=== PATIENT | female | born 1960 | race Caucasian/White ===

== ENCOUNTER 2019-09-19 11:35 | Outpatient (CLI) | payer BC, SELFPAY ==
--- NOTE | ~2019-09-19 | XR_ITS ---
EXAMINATION: XR clavicle RT DATE: 09/19/2019 12:23 INDICATION: Right shoulder pain. TECHNIQUE: 2 views of right clavicle were obtained. COMPARISON: None. FINDINGS: Bone alignment is normal. No fracture. Glenohumeral joint is normal. There is mild acromioc lavicular joint osteoarthritis. IMPRESSION: 1. Mild right acromioclavicular joint osteoarthritis. Reviewed, dictated and finalized at location A. ROLS DESIGN ENGINEER
== END 2019-09-19 11:36 | disposition home or self-care (01) ==
PROVIDERS: PCP Family Medicine; Visit Provider Family Medicine
DX: M19.011 Primary osteoarthritis, right shoulder (principal)
CPT/HCPCS: 73000

== ENCOUNTER 2019-11-04 12:30 | Outpatient (RCR) | payer BC, SELFPAY ==
--- NOTE | 2019-10-12 15:08 | PTOPEVAL ---
PHYSICAL THERAPY EVALUATION AND PLAN OF CARE 10-12-2019 The PT evaluation was completed for the diagnosis of L sciatica and the plan of treatment is for 2x/week for 4 weeks. Thank you for referring Soniya to [facility] [place]. Please review, sign, date and return this plan of care MAMADOU. I agree with and certify that the following plan of care is medically necessary. Referring Physician Date Referring Provider: Dena Ag, *PT Outpatient Evaluation Start: 10/12/19 14:13 Document 10/12/19 14:05 CODY (Rec: 10/12/19 15:08 CODY [id number]) Therapy Assessment Status Assessment Status Assessment Status Evaluation Outpatient Past Medical History Neurological History Hx Neurological Disorders No Significant History Cardiovascular History Hx Hypertension Yes: meds Respiratory History Hx Other Respiratory Disorders Yes: chronic cough, smoker Gastrointestinal History Hx Gastrointestinal Disorders No Significant History Genitourinary History Hx Genitourinary Disorders No Significant History Musculoskeletal History Hx Arthritis Yes: R hip,sh pain Hx Back Pain Yes: prev L sciatica into L foot ~ 3 yr ago Hx Rheumatoid Arthritis Yes: to see automobile appraiser in October Hx Other Musculoskeletal Disorders Yes: R carpal tunnel surgery & pain in L needs surgery Endocrine History Hx Diabetes Yes: borderline- watching and lost 10# HEENT History Hx HEENT Disorders No Significant History Evaluation Information Problem Diagnosis L sciatica Onset July 27 2019 Subjective Information gradual increase in pain in Query Text:As Reported By Patient/ back and L side; no recent Family trauma or injury; did have round of predisone- helped some, but still hurts; Previous Treatments Previous Treatments For This Problem no PT for back Prior Level of Function Activity Level (Last 3 Months) 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
--- NOTE | 2019-11-02 13:27 | PCPTNOTE ---
Patient called & cancelled scheduled appointment this date due to pulling a muscle in her leg, & being unable to do anything today.
--- NOTE | 2019-11-04 13:08 | PTOPEVAL ---
PHYSICAL THERAPY DISCHARGE 11-04-2019 Ms. De La Rosa has received 6 PT sessions, from 10-12-19 to today, for the diagnosis of low back pain, L sciatica. Compared to the initial evaluation: pain rating at highest rating is worse; pain continues to be the same, with radicular into her L LE to foot, a few times a week; sitting eases her pain to 0/10; Oswestry self assessment functional score is 8% worse; reported standing tolerance is less; reports walking tolerance remains the same at a few minutes only; strength of her trunk and hips have increased slightly; standing posture is the same; She has been educated on correct posture and position of her back and a home exercise program. The electrical stim and heat give her short term pain relief. The goals were partially achieved for strength, and the other goals were not achieved. Thank you for referring Soniya De La Rosa to [facility]. Please review, sign, date and return this discharge MAMADOU. I agree with and certify that the following plan of care is medically necessary. 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 Pain Assessment Timing of Pain Assessment Timing of Pain Assessment Assessment Pain Scale Pain Scale Used Numeric (1 - 10) Self Report Pain Assessment Left Back Reported Pain Level 4 Radicular Pain Location L LE into arch of foot/numb- few times/wk, lateral and medial thigh Pain Frequency Chronic Other Pain Description pain L sacrum/buttock Lowest Pain Intensity 0 Greatest Pain Intensity 8 Pain Level Goal 0 Pain Aggravating Factors Exercise/Activity,Walking, Weight Bearing/Standing Other Pain Aggra
== END 2019-11-07 12:38 | disposition home or self-care (01) ==
LOC: ANHPT 12:30
PROVIDERS: PCP Family Medicine; Referring Provider Family Medicine; Visit Provider Family Medicine
DX: M54.32 Sciatica, left side (principal)
CPT/HCPCS: 97014; 97110; 97161; G0283

== ENCOUNTER 2019-11-22 14:53 | Outpatient (CLI) | payer BC, SELFPAY | END 2019-11-22 14:54 | disposition home or self-care (01) | PROVIDERS: PCP Family Medicine; Visit Provider Internal Medicine Rheumatology | DX: R76.8 Other specified abnormal immunological findings in serum (principal) | CPT/HCPCS: 36415; 86038 ==

== ENCOUNTER 2019-12-16 15:34 | Outpatient (CLI) | payer BC, SELFPAY ==
--- NOTE | ~2019-12-16 | MR_ITS ---
EXAMINATION: MR lumbar spine wo [facility] EXAM DATE: 12/16/2019 16:37 INDICATION: Left-sided sciatica. Difficulty walking. TECHNIQUE: Multi-sequential, multiplanar MR images of the lumbar spine were obtained without contrast . Sagittal T1, T2, T2 fat saturation images. Axial T2 weighted images. There is no prior study for comparison. FINDINGS: There is 4 mm anterolisthesis L4 on L5. The vertebral bodies are otherwise aligned. Moderat e loss of the disc heights L2-5, mild to moderate at L1-2 and L5-S1. Moderate loss of the disc height s at T10-11 and T11-12. The conus medullaris terminates at the L1/2 level and has normal signal inten sity and morphology. There are no suspicious marrow signal abnormalities. Paraspinal soft tissue is unremarkable. Level by level evaluation: T12-L1: Disc does not extend beyond the endplate margin. Facet arthropathy: Mild. Neural foraminal stenosis: No stenosis. Central canal stenosis: No stenosis. L1-L2: There is a mild to moderate diffuse disc bulge. Facet arthropathy: Mild. Neural foraminal stenosis: Mild bilateral. Central canal stenosis: Mild. L2-L3: There is a moderate diffuse disc bulge. Facet arthropathy: Mild to moderate. Neural foraminal stenosis: Moderate left, mild to moderate right. Central canal stenosis: Mild to moderate. L3-L4: There is a moderate diffuse disc bulge. Facet arthropathy: Moderate . Ligamentum flavum enlargement. Neural foraminal stenosis: Mild to moderate bilateral. Central canal stenosis: Moderate, nerve root crowding. L4-L5: There is a moderate to large diffuse disc bulge asymmetric to the left. Facet arthropathy: Moderate to severe . Ligamentum flavum enlargement. Neural foraminal stenosis: Moderate left, mild to moderate right. Central canal stenosis: Moderate to severe. L5-S1: There is a mild diffuse disc bulge. Facet arthropathy: Moderate bilateral. Neural foraminal stenosis: Mild to moderate right. Central canal stenosis: Mild. IMPRESSION: 1. Central canal most stenotic at L3-4 and L4-5. 2. Grade 1 anterolisthesis L4 on L5. Reviewed, dictated and finalized at location A.
== END 2019-12-16 15:35 | disposition home or self-care (01) ==
PROVIDERS: PCP Family Medicine; Visit Provider Family Medicine
DX: M54.32 Sciatica, left side (principal); M48.061 Spinal stenosis, lumbar region without neurogenic claudication; M43.16 Spondylolisthesis, lumbar region
CPT/HCPCS: 72148

== ENCOUNTER 2020-04-12 15:56 | Outpatient (CLI) | payer BC, SELFPAY ==
--- NOTE | ~2020-04-12 | MM_ITS ---
EXAMINATION: MM screening robbie BI w catarino HISTORY: Screening mammogram TECHNIQUE: Craniocaudal and mediolateral oblique 3-D tomosynthesis images were obtained and synthetic 2-D images were generated. CAD analysis was submitted and interpreted. COMPARISON: 04/06/2019 bilateral digital screening mammogram 06/15/2017 left breast cyst aspiration 05/28/2017 bilateral diagnostic digital mammogram/Limited bilateral breast ultrasound 10/22/2016 and 02/14/2016 diagnostic right digital mammogram and limited right breast ultrasound 02/06/2016 bilateral digital screening mammogram BREAST PARENCHYMAL COMPOSITION: The breasts are almost entirely fatty. FINDINGS: Stable benign appearing circumscribed axillary tail lymph node on the right. There is no ev idence of suspicious mass, calcification, or architectural distortion to suggest malignancy in either breast. There has been no suspicious interval change. IMPRESSION: 1. No mammographic evidence of malignancy. 2. Recommend routine screening mammography in one year. BI-RADS Category 2: Benign finding(s). Reviewed, dictated and finalized at location A.
== END 2020-04-12 15:57 | disposition home or self-care (01) ==
LOC: ANHIMG 15:59
PROVIDERS: PCP Family Medicine; Visit Provider Family Medicine
DX: Z12.31 Encounter for screening mammogram for malignant neoplasm of breast (principal)
CPT/HCPCS: 77063; 77067

== ENCOUNTER 2020-10-16 06:47 | Outpatient (CLI) | payer BC, SELFPAY ==
--- NOTE | 2020-10-16 06:54 | ECHO_ITS ---
Patient Info Name: Soniya De La Rosa Age: 60 years : 1960 Gender: Female Ht: 62 in Wt: 200 lbs BSA: 2.04 m2 HR: 71 bpm BP: 164 / 92 mmHg Technical Quality: Fair Exam Date: 10/16/2020 7:18 AM Exam Location: [facility] Pulmonary Patient Status: Outpatient Admit Date: 10/16/2020 Staff Ordering Physician: Cody Cabello DO Resident Physician In Radiology: Latricia Hensley RDCS Attending Provider: Cody Cabello DO Referring Physician: Irineo PERALTA; Exam Type: CA echo doppler color flow Study Info Indications R06.00 - Dyspnea, unspecified Complete two-dimensional, color flow and Doppler transthoracic echocardiogram is performed. Summary 1. Complete two-dimensional, color flow and Doppler transthoracic echocardiogram is performed. 2. Left ventricular chamber dimension is normal. 3. Left ventricular systolic function is normal, estimated at 60-65%. 4. There is mildly increased left ventricular wall thickness. 5. The left ventricular diastolic function is grade I diastolic dysfunction. 6. E/e' 18 is elevated. 7. Global longitudinal strain is abnormal at -14.9%. 8. There is trace aortic valve regurgitation. 9. No pulmonary hypertension, estimated pulmonary arterial systolic pressure is 16 mmHg. Left Ventricle E/e' 18 is elevated. Global longitudinal strain is abnormal at -14.9%. Left ventricular chamber dimension is normal. Left ventricular systolic function is normal, estimated at 60-65%. There is mildly increased left ventricular wall thickness. The left ventricular diastolic function is grade I diastolic dysfunction. Right Ventricle Right ventricular chamber dimension is normal. Right ventricular systolic function is normal. Left Atria Left atrial chamber dimension is normal. Right Atria Right atrial chamber dimension is normal. Aortic Valve The aortic valve is trileaflet. There is no aortic valve stenosis. There is trace aortic valve regurgitation. Pulmonic Valve There is no pulmonic regurgitation. Mitral Valve There is no mitral valve stenosis. There is no mitral valve regurgitation. Tricuspid Valve There is no tricuspid valve regurgitation. No pulmonary hypertension, estimated pulmonary arterial systolic pressure is 16 mmHg. Pericardium/Pleural There is no pericardial effusion. Inferior Vena Cava Normal inferior vena cava with >50% collapse upon inspiration consistent with normal right atrial pressure, 5 mmHg. Aorta The aortic root size at the sinus of Valsalva is normal. Left Ventricular Outflow Tract Name Value Normal LVOT 2D LVOT Diameter 2.0 cm LVOT Doppler LVOT Peak Gradient 6 mmHg LVOT Mean Gradient 2 mmHg LVOT VTI 24 cm LVOT VTI/AV VTI Ratio 0.9 LVOT Stroke Volume 76 ml LVOT CO 4.4 l/min LVOT CI 2.1 l/min/m2 Pulmonic Valve Name Value Normal
== END 2020-10-16 06:48 | disposition home or self-care (01) ==
PROVIDERS: PCP Family Medicine; Visit Provider Internal Medicine Cardiovascular Disease
DX: R06.00 Dyspnea, unspecified (principal); I51.89 Other ill-defined heart diseases
CPT/HCPCS: 93306

== ENCOUNTER → 2020-11-13 03:43 | Outpatient (CLI) | payer BC, SELFPAY ==
[2020-11-13 20:30] LABS: SARS-CoV-2 RNA PCR Negative
== END ==
PROVIDERS: PCP Family Medicine; Visit Provider Specialist
DX: Z01.812 Encounter for preprocedural laboratory examination (principal); Z20.822 Contact with and (suspected) exposure to COVID-19
CPT/HCPCS: C9803; U0003; U0005

== ENCOUNTER 2020-11-16 02:01 | Day surgery (SDC) | payer BC, SELFPAY ==
[2020-11-15 17:02] VITALS: BMI 36.6
[2020-11-16] VITALS (18 sets, daily range): BP systolic 147–186; BP diastolic 68–88; PULSE 59–73; RESP 14–16; TEMP 35.7–36.6; O2SAT 92–100; BMI 38.8
[2020-11-16 07:41] LABS: Basophils Absolute Auto 0.1 K/mm3 (0.0-0.1); Basophils Percent Auto 0.8 % (0.2-1.2); Eosinophils Absolute Auto 0.4 K/mm3 (0-0.3); Eosinophils Percent Auto 4.9 % (0-4.4); Hematocrit 38.1 % (37.0-47.0); Hemoglobin 12.7 g/dL (12.0-15.0); Immature Granulocyte Absolute 0.03 K/mm3 (0.00-0.031); Immature Granulocyte Percent A 0.4 % (0-0.5); Lymphocytes Absolute Auto 2.77 K/mm3 (0.9-3.2); Lymphocytes Percent Auto 34.8 % (18.3-44.2); Mean Corpuscular HGB Conc 33.3 g/dl (32-36); Mean Corpuscular Hemoglobin 31.7 pg (26-34); Mean Platelet Volume 12.9 fl (7.4-10.4); Monocytes Absolute Auto 0.6 K/mm3 (0.1-0.6); Monocytes Percent Auto 7.8 % (2.6-8.5); Neutrophils Absolute Auto 4.1 K/mm3 (1.3-6.7); Neutrophils Percent Auto 51.3 % (45.5-73.1); Platelet Count Result 171 k/mm3 (150-375); Red Blood Count 4.01 M/mm3 (4.2-5.4); Red Cell Distribution Width 13.1 % (11.5-14.5)
[2020-11-16 07:51] LABS: Anion Gap 5 mmol/L (8-16); Blood Urea Nitrogen 27 mg/dL (7-17); Calcium 9.8 mg/dL (8.4-10.2); Carbon Dioxide 32 mmol/L (22-30); Chloride 105 mmol/L (98-107); Estimated CRCL calculation 52 ml/min; Estimated Glomerular Filt Rate 51; Glucose 107 mg/dL (65-105); INR 0.9; Potassium 4.4 mmol/L (3.4-5.0); Prothrombin Time 12.5 Seconds (11.1-14.7); Sodium 142 mmol/L (137-145)
--- NOTE | 2020-11-16 08:58 | WPDMODSED ---
Moderate Sedation Note-Pt Data Patient Data Diagnosis: Chronic exertional chest pain obesity hypertension non insulin-dependent diabetes smoking Present Complaint: this is a 60-year-old patient admitted for elective angiography today because of chronic symptoms of exertional dyspnea with chest pain. She has a multitude of coronary risk factors as detailed above. Procedure to be performed/Plan: Left heart catheterization Allergies Allergy/AdvReac Type Severity Reaction Status Date / Time cephalexin [From Keflex] AdvReac Unknown Photosensit Verified 11/16/20 07:36 ivity Home Medications Medication Instructions Recorded Confirmed Type acetaminophen 500 mg capsule 500 mg PO Q6H PRN 09/12/20 11/15/20 History cyclobenzaprine 10 mg tablet 10 mg PO TID PRN 09/12/20 11/15/20 History pravastatin 20 mg tablet 20 mg PO DAILY 09/12/20 11/15/20 History varenicline 1 mg tablet 1 mg PO BID 09/12/20 11/16/20 History losartan 100 1 tablet PO DAILY 09/27/20 11/15/20 History mg-hydrochlorothiazide 25 mg tablet diclofenac sodium 75 mg PO BID 11/15/20 11/15/20 History pregabalin 200 mg PO BID 11/16/20 11/16/20 History Current Medications: Active Medications Sodium Chloride (Normal Saline Iv) 500 mls @ 100 mls/hr IV CONT .Q5H EUGENE Sedation/Anesthesia: No previous sedation/anesthesia problems (including family history). [facility] Past Medical History Medical History Abnormal mammography Carpal tunnel syndrome Diabetes mellitus Hyperlipidemia Hypertensive disorder Low back pain Malignant essential hypertension Shoulder pain Surgical History Surgical History H/O tubal ligation History of carpal tunnel release Social History Social History Smoking status: Former smoker Tobacco type: cigarettes Additional smoking assessment comments: quit 1.5 weeks ago. Smoked 1.5PPD for 47 years Alcohol intake: current Alcohol use details: 12-20 drinks per week Substance use: current Substance use type: marijuana Other substance usage details: edibles used daily Living arrangements: alone Spiritual care concerns: No Mod Sed Physical Exam Physical Exam Pre Procedural Exam: Normal: Neck, Throat, Airway, Lungs, Heart Size, Heart Rate, Heart Rhythm, Neuro Exam and Extremities and Variation: Appearance ( obese white female no apparent distress) Hours since solid foods: 12 Hours since liquid intake: 12 Internal Medicine - PN: Obj Da Vital Signs Vital Signs: Vital Signs - 24 hr 11/16/20 07:30 Temperature 36.4 C L Pulse Rate 66 Respiratory Rate 15 Blood Pressure 154/88 H Pulse Oximetry 96 Meds/Results Medications: Active Medications Generic Name Dose Route Start Last Admin Trade Name Freq PRN Reason Stop Dose Admin Sodium Chloride 500 mls @ 100 mls/hr 11/16/20 07:00 Normal Saline Iv IV CONT .Q5H EUGENE Labs CBC & Chem 7: 11/16/20 07:29 11/16/20 07:29 Labs: Laboratory Results - last 24 hr 11/16/20 11/16/20 11/16/20 07:29 07:29 07:29 WBC 8.0 RBC 4.01 L Hgb 12.7 Hct 38.1 MCV 95.0 MCH 31.7 MCHC 33.3 RDW 13.1 Plt Count 171 MPV 12.9 H Immature Gran % (Auto) 0.4 Neut % (Auto) 51.3 Lymph % (Auto) 34.8 Granite % (Auto) 7.8 Eos % (Auto) 4.9 H Baso % (Auto) 0.8 Lymph # (Auto) 2.77 Granite # (Auto) 0.6 Eos # (Auto) 0.4 H Baso # (Auto) 0.1 Abs Immat Gran (auto) 0.03 Absolute Neuts (auto) 4.1 Absolute Nucleated RBC 0.0 Nucleated RBC % 0.0 PT 12.5 INR 0.9 Sodium 142 Potassium 4.4 Chloride 105 Carbon Dioxide 32 H Anion Gap 5 L BUN 27 H Creatinine 1.10 H Estim Creat Clear Calc 52 Estimated GFR 51 L Glucose 107 H Calcium 9.8 ASA Classification/Sedation ASA Cl
--- NOTE | 2020-11-16 09:38 | WPDCARDPROC ---
Cardiac Cath Procedure Note Date of procedure:: 11/16/20 Performing physician:: You Cunningham MD Indication:: Exertional chest pain compatible with angina extensive coronary calcification hypertension diabetes obesity smoking Brief clinical history:: this is a 60-year-old woman referred for angiography today because of symptoms typical of exertional angina he has multiple coronary risk factors as detailed above and significant coronary calcium on CT scan. Procedure Procedure performed:: Coronary angiography left ventriculography Sedation/Medication given:: fentanyl 50 mg Versed 2 mg case start time 9:13 a.m. case end time 9:37 a.m. sedation provided by Monserrat Carter RN , trained observer Access site:: right femoral artery Estimated blood loss:: 10-15 cc Procedure note:: patient was brought to the cardiac catheterization lab in the postabsorptive state where the right femoral triangle was prepared and draped in the usual fashion. Anesthesia was provided with 1% lidocaine infiltrated locally. Using the modified Seldinger technique the right femoral artery was punctured and a 5 Cuban vascular sheath was placed. It was evident that the sheath wire was encountering obstructive plaque in the iliac artery above the puncture site. I then placed a 5 Cuban JR4 catheter into the sheath into the femoral artery and using the J wire I was unable to traverse the obstructive disease in the iliac into the aorta. I then withdrew the J wire and replaced this with a Saad wire which advanced into the aorta fairly easily. Following this I advanced the JR4 catheter into the aortic root and conducted right coronary injections. After this I used a long wire to exchange the sheath to a long 5 Cuban sheath and used this sheath for the rest of the case. The left coronary artery was then engaged and injected using a standard 5 Cuban FL4 catheter. After this a 5 Cuban angled pigtail catheter was used to measure left-sided hemodynamics and to injected LV g in the JOSEPH projection. The case was then terminated the patient was taken to the holding area for manual sheath removal the procedure was uncomplicated. There was no evidence of groin hematoma upon leaving the pathology laboratory aides teacher. Findings:: Hemodynamics: Central aortic pressure is 152 over 70. Left ventricle 152 over 5 end-diastolic 18. There is no systolic gradient on pullback across the aortic valve. Left ventricle: In the JOSEPH projection the left ventricle appears to be normal in size all segments contract appropriately the global ejection fraction is 55-60% by visual estimation the left main coronary artery is moderate caliber there is no significant stenosis there is a hazy plaque in the distal left main seen in the [place] caudal projection. Does not appear to be flow-limiting disease. Angiographically this appears to be a 50-60% lesion. The left anterior descending is a moderate caliber artery extending down to around the apex. There is discrete 80% stenosis in the proximal segment of the LAD there is then 70-80% stenosis in the midportion of the LAD. There was GERRI 3 flow through the vessel. The LAD provides collateral filling to the right coronary artery and circumflex OM. The circumflex is a moderate caliber artery which is 100% occluded proximally. The circumflex OM branch does receives [id number] collateral filling as described above. The right coronary artery is 100% occluded just after its origin. Once again there is collateral left to right filling to the RPDA and RPL branches. Conclusion:: 1. Severe three-vessel coronary artery disease with moderate distal left main stenosis, high-grade proximal LAD stenosis and moderate mid LAD stenosis. The right coronary and circumflex are both proximally occluded 100% in both receive collateral filling from the LAD. 2. Remarkably preserved left ventricular systolic function 3. significant peripheral disease in the ilio
--- NOTE | 2020-11-16 11:15 | SUR.PHASEII ---
DR. MAHAJAN TO BEDSIDE TO SPEAK W/ PT AND HER SON.
--- NOTE | 2020-11-16 16:45 | SUR.PHASEII ---
BLOOD PRESSURE IMPROVED. PT. REFUSED DOSE OF LOSARTAN ORDERED BY DR. MAHAJAN. STATES SHE WILL TAKE AT HOME SINCE SHE IS BEING DISCHARGED NOW MED ARRIVED FROM PHARMACY.
--- NOTE | 2020-11-16 17:13 | SUR.PHASEII ---
HAVE REVIEWED DISCHARGE INSTRUCTIONS AND FOLLOW UP CARE W/ PT. DISK GIVEN TO TAKE TO SURGERY APPOINTMENT. QUESTIONS ANSWERED. VOICED UNDERSTANDING OF ALL. DISCHARGED HOME, OUT VIA WC TO SON'S WAITING CAR WITH ALL PERSONAL BELONGINGS AND DISCHARGE PACKET. VOICES NO C/O. NO DISTRESS NOTED.
== END 2020-11-16 17:13 | disposition home or self-care (01) ==
PROVIDERS: PCP Family Medicine; Visit Provider Specialist
PROC: 4A023N7 Measurement of Cardiac Sampling and Pressure, Left Heart, Percutaneous Approach (ICD-10-PCS; CPT 93452; principal; 2020-11-16 08:30)
DX: I25.10 Atherosclerotic heart disease of native coronary artery without angina pectoris (principal); R07.89 Other chest pain; E11.9 Type 2 diabetes mellitus without complications; R06.00 Dyspnea, unspecified; G56.00 Carpal tunnel syndrome, unspecified upper limb; E78.5 Hyperlipidemia, unspecified; I10 Essential (primary) hypertension; F12.90 Cannabis use, unspecified, uncomplicated; F17.210 Nicotine dependence, cigarettes, uncomplicated; E66.9 Obesity, unspecified; Z68.38 Body mass index [BMI] 38.0-38.9, adult
CPT/HCPCS: 36415; 80048; 85025; 85610; 93458; A9270; C1769; C1887; C1894; J1644; J2250; J3010; J7040

== ENCOUNTER 2021-12-19 13:46 | Outpatient (CLI) | payer OTHER, SELFPAY ==
--- NOTE | ~2021-12-19 | MR_ITS ---
EXAMINATION: MR lumbar spine wo con DATE: 12/19/2021 14:40 INDICATION: Intervertebral disc degeneration TECHNIQUE: Magnetic resonance imaging (MRI) of the lumbar spine was performed without intravenous con trast. Sequences included sagittal T2-weighted FSE, sagittal T2-weighted FS FSE, sagittal T1-weighted FSE, coronal T2-weighted FS FSE and axial T2-weighted FSE. COMPARISON: 12/16/2019 FINDINGS: 23 degree dextroscoliosis between L1 and L4. 3 mm anterolisthesis L4 on L5. Vertebral body heights ar e normal. Severe disc height loss diffusely at L4-L5, the left at L2-L3 and L3-L4 and on the right at L5-S1, T10-T11 and T11-T12. Moderate disc height loss at L1-L2 and mild disc height loss at T12-L1. The conus medullaris terminates at L2. There is normal signal in the caudal spinal cord. 1.7 cm T2 hy perintense exophytic cyst at the posterior interpolar region of the left kidney. Paravertebral soft t issues are otherwise unremarkable. The following disc levels are specifically discussed: T12-L1: Disc is bulging. There is mild hypertrophy of the right ligamentum flavum. There is mild left and moderate right facet joint osteoarthritis. There is mild bilateral neural foraminal stenosis. Th ere is mild central canal stenosis. L1-L2: Disc is bulging. There is hypertrophy of the ligamentum flavum. There is mild right and minima l left facet joint osteoarthritis. There is mild right and mild to moderate left neural foraminal ac nosis. There is mild central canal stenosis. L2-L3: Disc is bulging. There is left-sided predominant hypertrophy of the ligamentum flavum. There i s mild right and moderate left facet joint osteoarthritis. There is moderate left and mild to moderat e right neural foraminal stenosis. There is moderate to severe central canal stenosis. L3-L4: Disc is bulging. There is hypertrophy of the ligamentum flavum. There is moderate to severe bi lateral facet joint osteoarthritis. There is moderate left and mild to moderate right neural foramina l stenosis. There is moderate to severe central canal stenosis. L4-L5: Disc is bulging. There is hypertrophy of the ligamentum flavum. There is severe bilateral face t joint osteoarthritis. There is moderate left and moderate to severe right neural foraminal stenosis . There is severe central canal stenosis. L5-S1: Disc is bulging. There is severe right and moderate left facet joint osteoarthritis. There is moderate right and mild left neural foraminal stenosis. There is no central canal stenosis. IMPRESSION: 1. Interval progression of severe lumbar spondylosis. Reviewed, dictated and finalized at location B.
== END 2021-12-19 13:47 | disposition home or self-care (01) ==
LOC: ANHIMG 13:46
PROVIDERS: PCP Family Medicine; Visit Provider Family Medicine
DX: M51.36 Other intervertebral disc degeneration, lumbar region (principal); M47.817 Spondylosis without myelopathy or radiculopathy, lumbosacral region; M48.07 Spinal stenosis, lumbosacral region; M47.815 Spondylosis without myelopathy or radiculopathy, thoracolumbar region; M48.05 Spinal stenosis, thoracolumbar region
CPT/HCPCS: 72148

== ENCOUNTER 2022-10-30 13:37 | Outpatient (CLI) | payer OTHER, SELFPAY ==
--- NOTE | ~2022-10-30 | PE_ITS ---
EXAMINATION: PET skull to mid thigh DATE: 10/30/2022 15:46 INDICATION: Solitary pulmonary nodule. TECHNIQUE: Blood glucose level was 113 mg/dL. 9.641 mCi of 18-fluorodeoxyglucose (18-FDG) was adminis tered i.v. Low dose computed tomography (CT) images were acquired from the base of the brain to the p roximal thighs for attenuation correction and anatomic localization. Automated exposure control was e mployed. Dose-length product (DLP) was 979 mGy-cm. Positron emission tomography (PET) images were acq uired in the same distribution. COMPARISON: Chest CT 01/31/2016 FINDINGS: Head/neck: There are no pathologically enlarged lymph nodes. Chest: There is a 2.0 cm nodule in right upper lobe with maximum SUV of 11. There is a 4 mm nodule wi thout increased activity in right upper lobe. No pleural effusion. The heart size is normal. There ar e coronary artery calcifications. There are changes of coronary artery bypass grafting. No pericardia l effusion. There are no pathologically enlarged lymph nodes. Abdomen/pelvis/proximal thighs: The liver and gallbladder are normal. Calcifications in the spleen ar e consistent with old granulomatous disease. The pancreas and adrenal glands are normal. There is cor tical thinning of right kidney. There is a 1.7 cm cyst in left kidney. There is calcified atheroscler osis of the aorta and many of the other arteries. There are calcified fibroids in the uterus. The marla endix is dilated to 18 mm and contains hyperdense material and gas. There are no pathologically enlar ged lymph nodes. There is no free intraperitoneal fluid. There is no osseous malignancy. IMPRESSION: 1. 2.0 cm nodule in right lung upper lobe with maximum SUV of 11, consistent with primary bronchogeni c carcinoma. CT-guided biopsy is recommended. 2. Dilatation of the appendix to 18 mm. This finding is suspicious for appendicitis or a mucocele. Co nsider resection. Reviewed, dictated and finalized at location A. IMPRESSION: 1. 2.0 cm nodule in right lung upper lobe with maximum SUV of 11, consistent wi th primary bronchogenic carcinoma. CT-guided biopsy is recommended. 2. Dilatation of the appendix to 18 mm. This finding is suspicious for appendic itis or a mucocele. Consider resection.
[2022-10-30 14:05] LABS: Glucose Point of Care 113 mg/dl (65-105)
== END 2022-10-30 13:38 | disposition home or self-care (01) ==
PROVIDERS: PCP Family Medicine; Visit Provider Physician Assistant
DX: R91.1 Solitary pulmonary nodule (principal)
CPT/HCPCS: 78815; A9552

== ENCOUNTER 2022-12-10 09:04 | Outpatient (CLI) | payer OTHER, SELFPAY ==
[2022-12-03 11:32] VITALS: BMI 35.8
--- NOTE | 2022-12-03 11:32 | PC.NURSE ---
Pre Radiology instructions Report to the outpatient [facility] on date 12/10/22 at time 0900 for procedure Time: 1100. YOU MAY BE MONITORED AT HOSPITAL FOR UP TO 4 HOURS AFTER YOUR PROCEDURE. A visitor will be allowed to accompany the patient into the hospital. You and your visitor will be asked to self-screen and do not enter if you have any COVID symptoms. A mask is OPTIONAL within the hospital. Patients are to have no food or drink 6 hours prior to procedure time Driving will be restricted after the procedure, you must have a person to drive you home. Labs will be drawn in preop area and once reviewed, you will be taken to radiology area for procedure. When the procedure is completed, you will be taken to outpatient where you will be monitored for several hours. You may have one visitor in this area. Other than holding anti-coagulants, patient may take other medication(s) as scheduled. Prior to your appointment date patients are instructed to hold anti-coagulants after discussing with ordering provider to stop. If unable to discontinue anti-coagulants please notify radiologist. ? No aspirin or warfarin (Coumadin) for 7 days prior to the procedure. ? No clopidogrel (Plavix), ticagrelor (Brilinta), prasugrel (Effient) or dabigatran (Pradaxa) for 5 days prior to the procedure. ? No rivaroxaban (Xarelto), apixaban (Eliquis), dipyridamole (Aggrenox or Persantine) or cilostazol (Pletal) for 2 days prior to the procedure. Medications to discontinue per physician: ASPIRIN Date to take last dose: 12/02/22 Please leave all valuables, including medications, at home the day of procedure. The hospital will not accept responsibility for valuables. Wear comfortable, loose fitting clothing.? Follow any additional instructions given to you from ordering provider. Telephone instructions given to ABAD ESPARZA and asked if any additional questions and then verbalized understanding. Patient advised to call scheduling provider office or registration scheduling [phone] if any additional questions.
[2022-12-10] VITALS (12 sets, daily range): BP systolic 136–182; BP diastolic 62–95; PULSE 50–62; RESP 14–16; TEMP 36.8; O2SAT 92–100
--- NOTE | ~2022-12-10 | CT_ITS ---
EXAMINATION: CT biopsy lung w/imaging DATE: 12/10/2022 11:10 INDICATION: Right lung upper lobe nodule. TECHNIQUE: The procedure including the risks, benefits, and alternatives and possibility of chest tub e placement were discussed with the patient. Risks discussed included infection, hemorrhage, approxim ately 1/3 risk of pneumothorax, approximately 1/10 risk of pneumothorax severe enough to warrant ches t tube placement, and rarely . The patient understood the risks and agreed to proceed. The patie nt was placed prone. The skin overlying the right lung upper lobe was prepped and draped in sterile fashion. Anesthetic was administered with 1% lidocaine subcutaneously. A 19 gauge outer needle was advanced under CT guidance to the lesion of interest. A 20 gauge core biopsy needle was then used to obtain 2 core biopsy specimens. The needle was removed and the entry site was cleaned and dressed. Th e mA was adjusted according to patient size. Iterative reconstruction technique was employed. The dos e-length product was 118.38 mGy-cm. There were no immediate complications. FINDINGS: CT images demonstrate the outer needle tip adjacent to a 2.0 cm nodule in right lung upper lobe. IMPRESSION: 1. CT-guided core needle biopsy of a 2.0 cm nodule in right lung upper lobe. Reviewed, dictated and finalized at location A.
--- NOTE | ~2022-12-10 | XR_ITS ---
EXAMINATION: XR chest 1V portable DATE: 12/10/2022 12:07 INDICATION: Right lung nodule status post percutaneous biopsy. TECHNIQUE: A single frontal view of the chest was obtained. COMPARISON: Chest single view at 11:06 AM FINDINGS: There is a nodule in right lung upper lobe. No pleural effusion or pneumothorax. Cardiomega ly is noted. Median sternotomy wires and mediastinal surgical clips are seen, likely from prior coron alysia artery bypass grafting. IMPRESSION: 1. Nodule in right lung upper lobe suspicious for primary bronchogenic carcinoma. 2. Cardiomegaly. Reviewed, dictated and finalized at location A. IMPRESSION: 1. Nodule in right lung upper lobe suspicious for primary bronchogenic carcinom a. 2. Cardiomegaly.
--- NOTE | ~2022-12-10 | XR_ITS ---
EXAMINATION: XR chest 1V DATE: 12/10/2022 11:10 INDICATION: Right lung nodule status post percutaneous biopsy. TECHNIQUE: A single frontal view of the chest was obtained. COMPARISON: PET CT 10/30/2022 FINDINGS: The patient is rotated to her right. There is a nodule at right lung apex. No pleural effus ion or pneumothorax. Cardiomegaly is noted. Median sternotomy wires and mediastinal surgical clips ar e seen, likely from prior coronary artery bypass grafting. IMPRESSION: 1. Nodule at right lung apex suspicious for primary bronchogenic carcinoma. 2. Cardiomegaly. Reviewed, dictated and finalized at location A.
--- NOTE | ~2022-12-10 | XR_ITS ---
EXAMINATION: XR chest 1V portable DATE: 12/10/2022 14:03 INDICATION: Right lung nodule status post percutaneous biopsy. TECHNIQUE: A single frontal view of the chest was obtained. COMPARISON: Chest single view at 12:05 PM FINDINGS: There is a nodule in right lung upper lobe. No pleural effusion or pneumothorax. The heart size is normal. Median sternotomy wires and mediastinal surgical clips are seen, likely from prior co ronary artery bypass grafting. IMPRESSION: 1. Nodule in right lung upper lobe suspicious for primary bronchogenic carcinoma. Reviewed, dictated and finalized at location A. IMPRESSION: 1. Nodule in right lung upper lobe suspicious for primary bronchogenic carcinom a.
[2022-12-10 09:50] LABS: Immature Platelet Fraction Pct 26.1 % (0.9-11.2); Platelet Count Result 129 k/mm3 (150-375)
[2022-12-10 10:07] LABS: INR 0.9
--- NOTE | 2022-12-10 12:55 | SUR.PHASEII ---
1250: Dr. Velázquez notified of patients. Patient took her 12.5mg coreg (home dose)
== END 2022-12-10 14:34 | disposition home or self-care (01) ==
LOC: ANHSURGERY 14:43
PROVIDERS: PCP Family Medicine; Referring Provider Physician Assistant; Visit Provider Radiology Diagnostic Radiology
PROC: BB24ZZZ Computerized Tomography (CT Scan) of Bilateral Lungs (ICD-10-PCS; CPT 32408; principal; 2022-12-10 11:00)
DX: R91.1 Solitary pulmonary nodule (principal)
CPT/HCPCS: 32408; 36415; 71045; 85049; 85055; 85610; 88305

== ENCOUNTER 2023-01-09 03:24 | Outpatient (CLI) | payer OTHER, SELFPAY ==
--- NOTE | 2023-01-05 14:39 | PC.NURSE ---
Addendum entered by Michelle Alcazar RN 01/06/23 12:53: CONTACTED PT, INSTRUCTED HER TO COME TO THE IMAGING C[facility] AT THE FRONT OF THE HOSPITAL AT 1030 ON 01/09. VERBALIZED UNDERSTANDING. Original Note: Pre Radiology instructions Report to the outpatient [facility] on date 01/09/23 at time _1030 (PER X-RAY) NO LABS NEEDED for procedure Time: 1100____ YOU MAY BE MONITORED AT HOSPITAL FOR UP TO 4 HOURS AFTER YOUR PROCEDURE. A visitor will be allowed to accompany the patient into the hospital. You and your visitor will be asked to self-screen and do not enter if you have any COVID symptoms. A mask is OPTIONAL within the hospital. Patients are to have no food or drink 6 hours prior to procedure time Driving will be restricted after the procedure, you must have a person to drive you home. Labs will be drawn in preop area and once reviewed, you will be taken to radiology area for procedure. When the procedure is completed, you will be taken to outpatient where you will be monitored for several hours. You may have one visitor in this area. Other than holding anti-coagulants, patient may take other medication(s) as scheduled. Prior to your appointment date patients are instructed to hold anti-coagulants after discussing with ordering provider to stop. If unable to discontinue anti-coagulants please notify radiologist. ? No aspirin or warfarin (Coumadin) for 7 days prior to the procedure. ? No clopidogrel (Plavix), ticagrelor (Brilinta), prasugrel (Effient) or dabigatran (Pradaxa) for 5 days prior to the procedure. ? No rivaroxaban (Xarelto), apixaban (Eliquis), dipyridamole (Aggrenox or Persantine) or cilostazol (Pletal) for 2 days prior to the procedure. Medications to discontinue per physician: __ASPIRIN Date to take last dose: ____01/01/23 Please leave all valuables, including medications, at home the day of procedure. The hospital will not accept responsibility for valuables. Wear comfortable, loose fitting clothing.? Follow any additional instructions given to you from ordering provider. Telephone instructions given to ___PATIENT and asked if any additional questions and then verbalized understanding. Patient advised to call scheduling provider office or registration scheduling [phone] if any additional questions.
[2023-01-05 14:46] VITALS: BMI 36.6
[2023-01-09] VITALS (8 sets, daily range): BP systolic 152–194; BP diastolic 54–82; PULSE 54–65; RESP 16–18; O2SAT 95
--- NOTE | ~2023-01-09 | XR_ITS ---
EXAMINATION: XR chest 1V portable DATE: 01/09/2023 13:08 INDICATION: Right lung nodule status post percutaneous biopsy. TECHNIQUE: A single frontal view of the chest was obtained. COMPARISON: Chest single view at 12:08 PM FINDINGS: There is a nodule in right lung upper lobe. No pleural effusion or pneumothorax. Cardiomega ly is noted. Median sternotomy wires and mediastinal surgical clips are seen, likely from prior coron alysia artery bypass grafting. IMPRESSION: 1. Nodule in right lung upper lobe, consistent with primary bronchogenic carcinoma. 2. Cardiomegaly. Reviewed, dictated and finalized at location A. IMPRESSION: 1. Nodule in right lung upper lobe, consistent with primary bronchogenic carcin nury. 2. Cardiomegaly.
--- NOTE | ~2023-01-09 | CT_ITS ---
EXAMINATION: CT biopsy lung w/imaging DATE: 01/09/2023 12:10 INDICATION: Adenocarcinoma right lung. TECHNIQUE: The procedure including the risks, benefits, and alternatives and possibility of chest tub e placement were discussed with the patient. Risks discussed included infection, approximately 1/20 r isk of symptomatic hemorrhage beyond mild hemoptysis, approximately 1/3 risk of pneumothorax, approxi mately 1/10 risk of pneumothorax severe enough to warrant chest tube placement, and rarely . The patient understood the risks and agreed to proceed. The patient was placed prone. The skin overlyin g the right lung was prepped and draped in sterile fashion. Anesthetic was administered with 1% lido duglas subcutaneously. A 19 gauge outer needle was advanced under CT guidance to the lesion of intere st. A 20 gauge core biopsy needle was then used to obtain 3 core biopsy specimens. The needle was rem kevin and the entry site was cleaned and dressed. The mA was adjusted according to patient size. Itera tive reconstruction technique was employed. The dose-length product was 155.81 mGy-cm. There were no immediate complications. FINDINGS: CT images demonstrate the outer needle tip adjacent to a 2.0 cm nodule in right lung upper lobe. IMPRESSION: 1. CT-guided core needle biopsy of a 2.0 cm nodule in right lung upper lobe. Reviewed, dictated and finalized at location A.
--- NOTE | ~2023-01-09 | XR_ITS ---
EXAMINATION: XR chest 1V portable DATE: 01/09/2023 14:54 INDICATION: Right lung nodule status post percutaneous biopsy. TECHNIQUE: A single frontal view of the chest was obtained. COMPARISON: Chest single view at 1:03 PM FINDINGS: There is a nodule in right lung upper lobe. No pleural effusion or pneumothorax. Cardiomega ly is noted. Median sternotomy wires and mediastinal surgical clips are seen, likely from prior coron alysia artery bypass grafting. IMPRESSION: 1. Nodule in right lung upper lobe, consistent with primary bronchogenic carcinoma. 2. Cardiomegaly. Reviewed, dictated and finalized at location A. IMPRESSION: 1. Nodule in right lung upper lobe, consistent with primary bronchogenic carcin nury. 2. Cardiomegaly.
--- NOTE | ~2023-01-09 | XR_ITS ---
XR chest 1V 01/09/2023 12:10 Indication: Post lung biopsy. Procedure: AP portable chest Comparison: 12/10/2022 Findings: Status post median sternotomy for CABG. Cardiomegaly. There is a nodule at the right apex, suspicious for malignancy. No pneumothorax postprocedure. No focal pneumonia, pleural effusion or pne umothorax. Impression: 1: No pneumothorax identified post biopsy. 2: Asymmetric nodule right apex, suspicious for malignancy. Reviewed, dictated and finalized at location [] Impression: 1: No pneumothorax identified post biopsy. 2: Asymmetric nodule right apex, suspicious for malignancy.
--- NOTE | 2023-01-09 13:03 | SUR.PHASEII ---
1300 - chest xr done.
== END 2023-01-09 15:43 | disposition home or self-care (01) ==
LOC: ANHSURGERY 10:32 → ANHIMG 10:37
PROVIDERS: Radiology Diagnostic Radiology; PCP Family Medicine; Visit Provider Internal Medicine Pulmonary Disease
PROC: BB24ZZZ Computerized Tomography (CT Scan) of Bilateral Lungs (ICD-10-PCS; CPT 32408; principal; 2023-01-09 11:00)
DX: C34.91 Malignant neoplasm of unspecified part of right bronchus or lung (principal)
CPT/HCPCS: 32408; 71045; 88305

== ENCOUNTER 2023-02-26 12:40 | Outpatient (CLI) | payer OTHER, SELFPAY ==
--- NOTE | ~2023-02-26 | XR_ITS ---
EXAMINATION: XR shoulder RT min 2V INDICATION: Right shoulder pain TECHNIQUE: Four views of the right shoulder are submitted. COMPARISON: 09/19/2019 FINDINGS: Normal alignment. No fracture. 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 The glenohumeral joint is normal. Soft tissues are unremarkable. IMPRESSION: 1. No acute osseous abnormality. Reviewed, dictated and finalized at location F.
== END 2023-02-26 12:41 | disposition home or self-care (01) ==
PROVIDERS: PCP Family Medicine
DX: M25.511 Pain in right shoulder (principal)
CPT/HCPCS: 73030

== ENCOUNTER 2023-03-11 09:30 | Outpatient (CLI) | payer OTHER, SELFPAY ==
--- NOTE | ~2023-03-11 | NM_ITS ---
EXAMINATION: NM denise stress w perfusion DATE: 03/11/2023 12:18 INDICATION: Dyspnea, unspecified. TECHNIQUE: Rest images were obtained following intravenous administration of 9.44 mCi Tc99m tetrofosm in (Myoview). The patient was infused intravenously with Lexiscan (regadenoson). Then, 30.8 mCi Tc99m tetrofosmin (Myoview) was administered intravenously, and stress images were obtained. Data was emperatriz nstructed into short axis and horizontal and vertical long axis SPECT images. Gated SPECT images were also obtained. COMPARISON: None. FINDINGS: There is a small, moderate-severity, fixed perfusion defect involving apical to mid anterio r wall of left ventricle, consistent with ischemia. There is a large, moderate severity, reversible p erfusion defect involving apical to basal anterolateral and inferolateral wall and mid inferior wall of left ventricle, consistent with ischemia. There is no segmental wall motion abnormality. Left ve ntricular ejection fraction measures 58%. IMPRESSION: 1. Small area of moderate ischemia involving apical to mid anterior wall of left ventricle. 2. Large area of moderate ischemia involving apical to basal anterolateral and inferolateral wall and mid inferior wall of left ventricle. 3. Normal left ventricular ejection fraction measuring 58%. Reviewed, dictated and finalized at location A. IMPRESSION: 1. Small area of moderate ischemia involving apical to mid anterior wall of lef t ventricle. 2. Large area of moderate ischemia involving apical to basal anterolateral and inferolateral wall and mid inferior wall of left ventricle. 3. Normal left ventricular ejection fraction measuring 58%.
--- NOTE | 2023-03-11 09:47 | EST_ITS ---
Patient Info Name: Soniya De La Rosa Age: 62 years : 1960 Gender: Female Ht: 62 in Wt: 200 lbs BSA: 2.04 m2 HR: 60 bpm BP: 112 / 73 mmHg Heart Rhythm: Sinus Rhythm Exam Date: 03/11/2023 10:36 AM Exam Location: [facility] Stress Patient Status: Outpatient Admit Date: 03/11/2023 Staff Ordering Physician: Cody Cabello DO Attending Provider: Cody Cabello DO Exercise Technologist: Sarahy Moran CT Exercise Physician: Cody Cabello DO Exam Type: CA stress denise w NM Study Info Indications R06.02 - Shortness of breath A regadenoson stress test was performed. Summary 1. 1. Negative lexiscan stress test for ischemic ST changes by ECG criteria. 2. 2. Stable hemodynamics throughout the test. 3. 3. Nuclear scan to follow and will be reported separately. Please correlate with it. 4. 4. Patient informed of the above results. Protocol: Lexiscan Stress ECG Details Stage: REST Duration (min): 1 min : 33 sec HR (bpm): 63 SBP (mmHg): 112 DBP (mmHg): 73 Stage: REST Duration (min): 5 min : 40 sec HR (bpm): 57 SBP (mmHg): 112 DBP (mmHg): 73 Stage: STAGE 1 Duration (min): 0 min : 59 sec HR (bpm): 65 SBP (mmHg): 111 DBP (mmHg): 74 Stage: RECOVERY Duration (min): 1 min : 0 sec HR (bpm): 85 SBP (mmHg): 111 DBP (mmHg): 74 Stage: RECOVERY Duration (min): 2 min : 0 sec HR (bpm): 85 SBP (mmHg): 111 DBP (mmHg): 74 Stage: RECOVERY Duration (min): 2 min : 59 sec HR (bpm): 75 SBP (mmHg): 124 DBP (mmHg): 73 Rest HR: 57 bpm Peak HR: 88 bpm Rest Sys BP: 112 mmHg Peak Sys BP: 124 mmHg Max Pred HR: 158 bpm % Max Pred HR: 56 % Target HR: 134 bpm Max RPP: 10,912 bpm*mmHg Termination Reason: Completed protocol Cardiac Symptoms: Shortness of breath Total Time: 1 min : 0 sec Rest Alan BP: 73 mmHg Peak Alan BP: 73 mmHg Total Dose: 0.4 mg Resting ECG Sinus rhythm. Stress ECG No ST changes. Arrhythmias None. Report Signatures
== END 2023-03-11 09:31 | disposition home or self-care (01) ==
PROVIDERS: PCP Family Medicine; Visit Provider Internal Medicine Cardiovascular Disease
DX: R06.00 Dyspnea, unspecified (principal); I25.9 Chronic ischemic heart disease, unspecified
CPT/HCPCS: 78452; 93017; A9502; J2785